=== PATIENT | female | born 1960 | race Asian ===

== ENCOUNTER 2017-07-06 18:15 | Emergency (ER) | payer OTHER ==
[~2017-07-06] VITALS: Ht 160 cm; Wt 56.8 kg
[2017-07-06] MEDS ORDERED: GLIP2.5T17 PO (19:30)
[2017-07-06] MEDS ORDERED: METO-558 PO (19:34)
[2017-07-06] MEDS ORDERED: BENZ2TAB10 PO (19:34)
[2017-07-06] MEDS ORDERED: PALI819S IM (19:34)
[2017-07-06] MEDS ORDERED: BENA10TA3 PO (19:34)
[2017-07-06] MEDS ORDERED: CLON1PAT12 PO (19:34)
[2017-07-06 19:43] LABS: BASOPHILS # (AUTO) 0.06 K/uL (0.00-0.20); BASOPHILS % (AUTO) 0.7 % (0.0-2.0); EOSINOPHILS # (AUTO) 0.54 K/uL (0.00-0.70); HEMOGLOBIN 10.6 g/dL (12.0-16.0); LYMPHOCYTES # (AUTO) 2.4 K/uL (1.0-4.8); LYMPHOCYTES % (AUTO) 26.5 % (22.0-44.0); MEAN CORPUSCULAR HEMOGLOBIN 31.5 pg (26.0-34.0); MEAN CORPUSCULAR HGB CONC 33.2 G/dL (31.0-37.0); MEAN CORPUSCULAR VOLUME 95 fL (80-100); MONOCYTES # (AUTO) 0.7 K/uL (0.1-1.0); MONOCYTES % (AUTO) 7.9 % (2.0-9.0); NEUTROPHILS # (AUTO) 5.3 K/uL (1.8-7.7); PLATELET COUNT (AUTO) 399 K/uL (150-450); RED BLOOD CELL COUNT(AUTO) 3.37 MIL/uL (4.00-5.20); RED CELL DISTRIBUTION WIDTH 12.5 % (11.5-14.5)
[2017-07-06 19:59] LABS: ANION GAP 10 mmol/L (8-16); CALCIUM, TOTAL 9.8 mg/dL (8.8-10.5); CARBON DIOXIDE 27 mmol/L (22-29); CHLORIDE 103 mmol/L (98-107); CREATININE 0.85 mg/dL (0.60-1.30); GLOMERULAR FILTR. RATE CALC > 60 mL/min (>60); GLUCOSE,RANDOM 98 mg/dL (70-110); POTASSIUM 3.8 mmol/L (3.5-5.1); SODIUM SERUM 140 mmol/L (136-145); UREA NITROGEN, BLOOD 13 mg/dL (7-18)
[2017-07-06 20:04] LABS: ALANINE AMINOTRANSFERASE 17 U/L (12-78); ALBUMIN 3.7 g/dL (3.4-5.0); ALKALINE PHOSPHATASE 57 U/L (46-116); ASPARTATE AMINOTRANSFERASE 14 U/L (15-37); BILIRUBIN,TOTAL 0.3 mg/dL (0.1-1.0); TOTAL PROTEIN, SERUM 7.4 g/dL (6.4-8.2)
[2017-07-06] MEDS ORDERED: HALOPERIDOL 5 MG TABLET PO ONE (20:30)
[2017-07-06 20:38] VITALS: BP 157/84
== END 2017-07-06 20:50 | disposition home or self-care (01) ==
LOC: EMS 18:17
DX: F20.9 Schizophrenia, unspecified (principal); M79.673 Pain in unspecified foot; I10 Essential (primary) hypertension; E11.9 Type 2 diabetes mellitus without complications; Z79.899 Other long term (current) drug therapy
CPT/HCPCS: 36415; 80053; 85025; 99284; G0480

== ENCOUNTER 2019-08-23 14:47 | Inpatient (IN) | payer OTHER ==
[~2019-08-23] VITALS: Ht 160 cm; Wt 60.1 kg
[~2019-08-23 14:47] MED LIST: BENA10TA77 PO; BENZ2TAB10 PO; CLON1PAT12 PO; GLIP2.5T17 PO; METO-558 PO; PALI819S IM
[2019-08-23] MEDS ORDERED: ACETAMINOPHEN 500 MG TABLET PO ONE (15:15)
[2019-08-23] MEDS ORDERED: KETOROLAC TROMETHAMINE 60 MG/2 ML VIAL IM ONE (15:15)
[2019-08-23 15:51] LABS: EOSINOPHILS % (AUTO) 8.3 % (1.0-6.0); HEMATOCRIT 36.3 % (36-46); HEMOGLOBIN 11.9 g/dL (12.0-16.0); LYMPHOCYTES # (AUTO) 2.5 K/uL (1.0-4.8); LYMPHOCYTES % (AUTO) 29.5 % (22.0-44.0); MEAN CORPUSCULAR HGB CONC 32.7 G/dL (31.0-37.0); MEAN CORPUSCULAR VOLUME 98 fL (80-100); MONOCYTES # (AUTO) 0.6 K/uL (0.1-1.0); MONOCYTES % (AUTO) 6.6 % (2.0-9.0); NEUTROPHILS # (AUTO) 4.7 K/uL (1.8-7.7); NEUTROPHILS % (AUTO) 54.6 % (40.0-70.0); PLATELET COUNT (AUTO) 311 K/uL (150-450); RED BLOOD CELL COUNT(AUTO) 3.71 MIL/uL (4.00-5.20); RED CELL DISTRIBUTION WIDTH 13.3 % (11.5-14.5)
[2019-08-23 16:03] LABS: CALCIUM, TOTAL 9.4 mg/dL (8.8-10.5); CREATININE 0.98 mg/dL (0.60-1.30); POTASSIUM 3.4 mmol/L (3.5-5.1)
[2019-08-23 16:08] LABS: ALBUMIN 4.2 g/dL (3.4-5.0); BILIRUBIN,TOTAL 0.2 mg/dL (0.1-1.0); TOTAL PROTEIN, SERUM 8.2 g/dL (6.4-8.2)
[2019-08-23] MEDS ORDERED: ASPIRIN 325 MG TABLET PO ONE (17:30)
[2019-08-23] MEDS ORDERED: POTASSIUM CHLORIDE 10% 40 MEQ/30 ML LIQUID UDCUP PO ONE (17:30)
[2019-08-23] MEDS ORDERED: ACETAMINOPHEN 325 MG TABLET PO PRN ×2 (17:45→21:00)
[2019-08-23] MEDS ORDERED: NITROGLYCERIN 2% (1 GM=INCH) PACKET TP ONE (17:45)
[2019-08-23] MEDS ORDERED: ONDANSETRON HCL 4 MG/2 ML VIAL IVP PRN ×2 (17:45→21:00)
[2019-08-23] MEDS ORDERED: 0.9% SODIUM CHLORIDE 10 ML SYRINGE IVP PRN ×2 (17:45→21:00)
[2019-08-23 20:00] LABS: GLUCOSE,POINT OF CARE 84 MG/DL (70-110)
[2019-08-23 20:28] VITALS: BP 137/72
[2019-08-23] MEDS: DOCUSATE SODIUM 100 MG CAPSULE PO SCH (21:00)
[2019-08-23] MEDS ORDERED: MAGNESIUM OXIDE 400 MG TABLET PO PRN (21:00)
[2019-08-23] MEDS ORDERED: DEXTROSE 50%-WATER 25 GM/50 ML SYRINGE IVP PRN (21:00)
[2019-08-23] MEDS ORDERED: MAGNESIUM SULFATE 2 GM/WATER 50 ML IV PRN (21:00)
[2019-08-23] MEDS ORDERED: MAGNESIUM SULFATE 4 GM/WATER 100 ML IV PRN (21:00)
[2019-08-23] MEDS ORDERED: POTASSIUM CHL 10 MEQ/WATER 50 ML IV PRN (21:00)
[2019-08-23] MEDS ORDERED: BENZTROPINE MESYLATE 2 MG TABLET PO SCH (21:00)
[2019-08-23] MEDS ORDERED: ZOLPIDEM TARTRATE 5 MG TABLET PO PRN (21:00)
[2019-08-23] MEDS ORDERED: POTASSIUM CHLORIDE 20 MEQ ER TABLET PO PRN (21:00)
[2019-08-23] MEDS: BENZTROPINE MESYLATE 2 MG TABLET PO SCH (22:00)
[2019-08-23] MEDS: HEPARIN SODIUM,PORCINE 5,000 UNITS/ML VIAL SQ SCH (23:52)
[2019-08-24] VITALS (8 sets, daily range): BP systolic 95–174; BP diastolic 47–76
[2019-08-24] MEDS ORDERED: PNEUMOCOCCAL VACCINE POLYVALENT 0.5 ML VIAL [PPSV23] IM ONE (03:45)
[2019-08-24] MEDS ORDERED: INFLUENZA VIRUS VACCINE QVS 2019-20 (3YR+)/PF 60 MCG/0.5 ML SYRINGE IM ONE (03:45)
[2019-08-24 05:43] LABS: APPEARANCE,URINE CLOUDY (CLEAR); BILIRUBIN,URINE NEGATIVE (NEGATIVE); GLUCOSE, URINE (UA) NEGATIVE (NEGATIVE); KETONES,URINE NEGATIVE (NEGATIVE); LEUKOCYTE ESTERASE ,URINE LARGE (NEGATIVE); NITRATE,URINE NEGATIVE (NEGATIVE); OCCULT BLOOD,URINE NEGATIVE (NEGATIVE); PH,URINE 5.5 (5.0-8.0); PROTEIN,URINE NEGATIVE (NEGATIVE); UROBILINOGEN,URINE 0.2 mg/dL (<=1.0)
[2019-08-24 05:48] LABS: AMPHET/METH SCREEN,URINE NEGATIVE (NEGATIVE); BARBITURATE SCREEN, URINE NEGATIVE (NEGATIVE); BENZODIAZEPINES SCREEN,URINE NEGATIVE (NEGATIVE); CANNABINOID SCREEN,URINE NEGATIVE (NEGATIVE); COCAINE SCREEN,URINE NEGATIVE (NEGATIVE); METHADONE SCREEN, URINE NEGATIVE (NEGATIVE); OPIATE SCREEN,URINE NEGATIVE (NEGATIVE); PHENCYCLIDINE SCREEN,URINE NEGATIVE (NEGATIVE)
[2019-08-24 05:55] LABS: BACTERIA,URINE Few /HPF (None Seen); RBC,URINE 0-2 /HPF (0-2); SQUAMOUS EPITHELIAL CELL,UR Moderate /LPF (None Seen)
[2019-08-24 06:20] LABS: BASOPHILS % (AUTO) 0.9 % (0.0-2.0); EOSINOPHILS % (AUTO) 9.5 % (1.0-6.0); HEMATOCRIT 32.6 % (36-46); HEMOGLOBIN 10.8 g/dL (12.0-16.0); LYMPHOCYTES # (AUTO) 2.1 K/uL (1.0-4.8); LYMPHOCYTES % (AUTO) 28.7 % (22.0-44.0); MEAN CORPUSCULAR HEMOGLOBIN 32.2 pg (26.0-34.0); MEAN CORPUSCULAR HGB CONC 33.2 G/dL (31.0-37.0); MEAN CORPUSCULAR VOLUME 97 fL (80-100); MONOCYTES # (AUTO) 0.5 K/uL (0.1-1.0); NEUTROPHILS # (AUTO) 3.9 K/uL (1.8-7.7); NEUTROPHILS % (AUTO) 53.9 % (40.0-70.0); PLATELET COUNT (AUTO) 273 K/uL (150-450); RED BLOOD CELL COUNT(AUTO) 3.36 MIL/uL (4.00-5.20)
[2019-08-24 06:22] LABS: HEMOGLOBIN A1C 5.7 % (4.5-6.2)
[2019-08-24 06:28] LABS: CALCIUM, TOTAL 8.8 mg/dL (8.8-10.5); CREATININE 1.18 mg/dL (0.60-1.30); MAGNESIUM 1.8 mg/dL (1.80-2.40); POTASSIUM 4.7 mmol/L (3.5-5.1)
[2019-08-24 07:49] LABS: GLUCOMETER DEV NAME(LOC) 5S.2A; GLUCOSE,POINT OF CARE 146 MG/DL (70-110)
[2019-08-24 07:50] LABS: GLUCOMETER DEV NAME(LOC) 5S.2A; GLUCOSE,POINT OF CARE 99 MG/DL (70-110)
[2019-08-24] MEDS: HEPARIN SODIUM,PORCINE 5,000 UNITS/ML VIAL SQ SCH ×4 (08:00→23:24)
[2019-08-24] MEDS: METOPROLOL SUCCINATE 50 MG ER TABLET PO SCH (09:00)
[2019-08-24] MEDS: DOCUSATE SODIUM 100 MG CAPSULE PO SCH ×2 (09:00→20:14)
[2019-08-24] MEDS: CloNIDine HCL 0.1 MG TABLET PO SCH ×2 (09:00→20:14)
[2019-08-24] MEDS: BENZTROPINE MESYLATE 2 MG TABLET PO SCH ×2 (09:51→21:27)
[2019-08-24] MEDS: PANTOPRAZOLE SODIUM 40 MG DR TABLET PO SCH (09:51)
[2019-08-24] MEDS ORDERED: GLIP5 PO (10:53)
[2019-08-24] MEDS ORDERED: CLON0.1T83 PO (10:53)
[2019-08-24] MEDS: BENAZEPRIL HCL 10 MG TABLET PO SCH (12:09)
[2019-08-24 13:04] LABS: GLUCOMETER DEV NAME(LOC) 5S.2A; GLUCOSE,POINT OF CARE 112 MG/DL (70-110)
[2019-08-24] MEDS: CefTRIAXone 1 GM/DEXTROSE 50 ML IV SCH (18:21)
[2019-08-24] MEDS: AZITHROMYCIN 500 MG/NS 250 ML IV SCH (19:09)
[2019-08-24] MEDS ORDERED: BENZTROPINE MESYLATE 1 MG TABLET PO SCH (21:00)
[2019-08-24] MEDS: INSULIN LISPRO 100 UNITS/ML SQ PRN (21:21)
[2019-08-25] VITALS (7 sets, daily range): BP systolic 100–162; BP diastolic 55–76
[2019-08-25 05:01] LABS: GLUCOMETER DEV NAME(LOC) 5N.2; GLUCOSE,POINT OF CARE 203 MG/DL (70-110)
[2019-08-25 06:44] LABS: GLUCOMETER DEV NAME(LOC) 5S.2A; GLUCOSE,POINT OF CARE 119 MG/DL (70-110)
[2019-08-25] MEDS: CloNIDine HCL 0.1 MG TABLET PO SCH ×2 (08:17→21:00)
[2019-08-25] MEDS: DOCUSATE SODIUM 100 MG CAPSULE PO SCH ×2 (08:20→21:02)
[2019-08-25] MEDS: BENZTROPINE MESYLATE 2 MG TABLET PO SCH ×2 (08:21→21:02)
[2019-08-25] MEDS: PANTOPRAZOLE SODIUM 40 MG DR TABLET PO SCH (08:21)
[2019-08-25] MEDS: HEPARIN SODIUM,PORCINE 5,000 UNITS/ML VIAL SQ SCH ×2 (08:21→15:38)
[2019-08-25] MEDS: BENAZEPRIL HCL 10 MG TABLET PO SCH ×3 (09:00→14:49)
[2019-08-25] MEDS: METOPROLOL SUCCINATE 50 MG ER TABLET PO SCH (09:00)
[2019-08-25] MEDS: CefTRIAXone 1 GM/DEXTROSE 50 ML IV SCH (17:13)
[2019-08-25 17:27] LABS: GLUCOMETER DEV NAME(LOC) 5N.2; GLUCOSE,POINT OF CARE 110 MG/DL (70-110)
[2019-08-25 17:27] LABS: GLUCOMETER DEV NAME(LOC) 5N.2; GLUCOSE,POINT OF CARE 131 MG/DL (70-110)
[2019-08-25 17:27] LABS: GLUCOMETER DEV NAME(LOC) 5N.2; GLUCOSE,POINT OF CARE 110 MG/DL (70-110)
[2019-08-25] MEDS: AZITHROMYCIN 500 MG/NS 250 ML IV SCH (18:14)
[2019-08-25] MEDS: INSULIN LISPRO 100 UNITS/ML SQ PRN (21:09)
[2019-08-26 05:11] VITALS: BP 118/59
[2019-08-26 06:45] LABS: GLUCOMETER DEV NAME(LOC) 5N.2; GLUCOSE,POINT OF CARE 107 MG/DL (70-110)
[2019-08-26 06:50] LABS: GLUCOMETER DEV NAME(LOC) 5S.2A; GLUCOSE,POINT OF CARE 186 MG/DL (70-110)
[2019-08-26 08:46] VITALS: BP 129/65
[2019-08-26] MEDS: BENZTROPINE MESYLATE 2 MG TABLET PO SCH ×2 (08:48→20:02)
[2019-08-26] MEDS: DOCUSATE SODIUM 100 MG CAPSULE PO SCH ×2 (08:48→20:03)
[2019-08-26] MEDS: HEPARIN SODIUM,PORCINE 5,000 UNITS/ML VIAL SQ SCH ×5 (08:49→17:36)
[2019-08-26] MEDS: BENAZEPRIL HCL 10 MG TABLET PO SCH (08:49)
[2019-08-26] MEDS: PANTOPRAZOLE SODIUM 40 MG DR TABLET PO SCH (08:49)
[2019-08-26] MEDS: METOPROLOL SUCCINATE 50 MG ER TABLET PO SCH (08:49)
[2019-08-26] MEDS: CloNIDine HCL 0.1 MG TABLET PO SCH ×2 (08:58→20:03)
[2019-08-26 12:00] VITALS: BP 116/65
[2019-08-26 15:35] LABS: GLUCOMETER DEV NAME(LOC) 5N.2; GLUCOSE,POINT OF CARE 117 MG/DL (70-110)
[2019-08-26 16:35] VITALS: BP 120/69
[2019-08-26] MEDS: CefTRIAXone 1 GM/DEXTROSE 50 ML IV SCH (17:29)
[2019-08-26] MEDS: AZITHROMYCIN 500 MG/NS 250 ML IV SCH (18:17)
[2019-08-26 19:59] VITALS: BP 95/55
[2019-08-26] MEDS: INSULIN LISPRO 100 UNITS/ML SQ PRN (20:08)
[2019-08-26 22:19] LABS: GLUCOMETER DEV NAME(LOC) 5N.2; GLUCOSE,POINT OF CARE 219 MG/DL (70-110)
[2019-08-26 22:19] LABS: GLUCOMETER DEV NAME(LOC) 5N.2; GLUCOSE,POINT OF CARE 123 MG/DL (70-110)
[2019-08-26 23:49] VITALS: BP 102/48
[2019-08-27 04:10] VITALS: BP 111/63
[2019-08-27 06:43] LABS: GLUCOMETER DEV NAME(LOC) 5N.2; GLUCOSE,POINT OF CARE 99 MG/DL (70-110)
[2019-08-27 07:03] LABS: EOSINOPHILS % (AUTO) 12.9 % (1.0-6.0); HEMATOCRIT 33.9 % (36-46); HEMOGLOBIN 11.5 g/dL (12.0-16.0); LYMPHOCYTES # (AUTO) 2.5 K/uL (1.0-4.8); LYMPHOCYTES % (AUTO) 33.4 % (22.0-44.0); MEAN CORPUSCULAR HEMOGLOBIN 32.6 pg (26.0-34.0); MEAN CORPUSCULAR HGB CONC 33.9 G/dL (31.0-37.0); MEAN CORPUSCULAR VOLUME 96 fL (80-100); MONOCYTES # (AUTO) 0.4 K/uL (0.1-1.0); MONOCYTES % (AUTO) 5.8 % (2.0-9.0); NEUTROPHILS # (AUTO) 3.6 K/uL (1.8-7.7); NEUTROPHILS % (AUTO) 46.9 % (40.0-70.0); PLATELET COUNT (AUTO) 286 K/uL (150-450); RED BLOOD CELL COUNT(AUTO) 3.53 MIL/uL (4.00-5.20); RED CELL DISTRIBUTION WIDTH 13.1 % (11.5-14.5)
[2019-08-27 07:06] LABS: ANION GAP 8 mmol/L (8-16); CALCIUM, TOTAL 8.7 mg/dL (8.8-10.5); CARBON DIOXIDE 26 mmol/L (22-29); CHLORIDE 104 mmol/L (98-107); CREATININE 0.82 mg/dL (0.60-1.30); GLOMERULAR FILTR. RATE CALC > 60 mL/min (>60); GLUCOSE,RANDOM 102 mg/dL (70-110); POTASSIUM 4.2 mmol/L (3.5-5.1); SODIUM SERUM 138 mmol/L (136-145); UREA NITROGEN, BLOOD 26 mg/dL (7-18)
[2019-08-27 07:54] VITALS: BP 124/69
[2019-08-27] MEDS: CloNIDine HCL 0.1 MG TABLET PO SCH (08:34)
[2019-08-27] MEDS: BENZTROPINE MESYLATE 2 MG TABLET PO SCH (08:34)
[2019-08-27] MEDS: BENAZEPRIL HCL 10 MG TABLET PO SCH (08:34)
[2019-08-27] MEDS: DOCUSATE SODIUM 100 MG CAPSULE PO SCH (08:34)
[2019-08-27] MEDS: PANTOPRAZOLE SODIUM 40 MG DR TABLET PO SCH (08:34)
[2019-08-27] MEDS: METOPROLOL SUCCINATE 50 MG ER TABLET PO SCH (08:34)
[2019-08-27] MEDS: HEPARIN SODIUM,PORCINE 5,000 UNITS/ML VIAL SQ SCH ×3 (08:35→15:32)
[2019-08-27 11:31] VITALS: BP 97/43
[2019-08-27] MEDS ORDERED: CIP250 PO (13:15)
[2019-08-27] MEDS ORDERED: SODIUM CHLORIDE 0.9% 250 ML IV ONE (13:51)
[2019-08-27] MEDS: AZITHROMYCIN 500 MG/NS 250 ML IV SCH (14:41)
[2019-08-27 15:44] VITALS: BP 100/53
[2019-08-27] MEDS: CefTRIAXone 1 GM/DEXTROSE 50 ML IV SCH (15:56)
[2019-08-28 11:47] LABS: GLUCOMETER DEV NAME(LOC) 5S.2A; GLUCOSE,POINT OF CARE 126 MG/DL (70-110)
[2019-09-19] MEDS ORDERED: [UNRECOGNIZED DRUG - OTHER] IM SCH (09:00)
== END 2019-08-27 18:20 | disposition home or self-care (01) | DRG 203 ==
LOC: EMS 14:47 → 5S 18:36
PROVIDERS: ADMIT Internal Medicine; ATTEND Internal Medicine
DX: R07.89 Other chest pain (principal); J18.9 Pneumonia, unspecified organism; F20.0 Paranoid schizophrenia; I10 Essential (primary) hypertension; E11.9 Type 2 diabetes mellitus without complications; E87.6 Hypokalemia
CPT/HCPCS: 71250; 83036; 83735; 87086; 93005; 93306; 96372; G0378; G0480; J0456; J0696; J1644; J1885; J2405; J7050

== ENCOUNTER 2019-12-10 10:26 | Emergency (ER) | payer OTHER ==
[~2019-12-10] VITALS: Ht 154.9 cm; Wt 56.8 kg
[~2019-12-10 10:26] MED LIST changes: +CIPR250T6 PO; +CLON0.1T83 PO; -CLON1PAT12 PO; -GLIP2.5T17 PO; +GLIP5 PO
[2019-12-10] MEDS ORDERED: PRAZ1CAP5 PO (11:01)
[2019-12-10] MEDS ORDERED: FLUP10 PO (11:01)
[2019-12-10] MEDS ORDERED: ARIP1SOL PO (11:01)
[2019-12-10] MEDS ORDERED: PALI546S IM (11:01)
[2019-12-10] MEDS ORDERED: ACETAMINOPHEN 500 MG TABLET PO ONE (13:45)
[2019-12-10] MEDS ORDERED: ARIP10TA8 PO (14:08)
[2019-12-10 14:28] LABS: BASOPHILS % (AUTO) 1.2 % (0.0-2.0); EOSINOPHILS % (AUTO) 3.9 % (1.0-6.0); HEMOGLOBIN 12.6 g/dL (12.0-16.0); LYMPHOCYTES # (AUTO) 1.9 K/uL (1.0-4.8); LYMPHOCYTES % (AUTO) 23.6 % (22.0-44.0); MEAN CORPUSCULAR HEMOGLOBIN 31.5 pg (26.0-34.0); MEAN CORPUSCULAR HGB CONC 32.2 G/dL (31.0-37.0); MEAN CORPUSCULAR VOLUME 98 fL (80-100); MONOCYTES # (AUTO) 0.5 K/uL (0.1-1.0); MONOCYTES % (AUTO) 6.2 % (2.0-9.0); NEUTROPHILS # (AUTO) 5.1 K/uL (1.8-7.7); NEUTROPHILS % (AUTO) 65.1 % (40.0-70.0); PLATELET COUNT (AUTO) 317 K/uL (150-450); RED BLOOD CELL COUNT(AUTO) 3.98 MIL/uL (4.00-5.20); RED CELL DISTRIBUTION WIDTH 12.3 % (11.5-14.5)
[2019-12-10 14:45] LABS: CALCIUM, TOTAL 10.9 mg/dL (8.8-10.5); CREATININE 1.01 mg/dL (0.60-1.30); POTASSIUM 3.6 mmol/L (3.5-5.1)
[2019-12-10 14:48] LABS: ALBUMIN 4.3 g/dL (3.4-5.0); BILIRUBIN,TOTAL 0.5 mg/dL (0.1-1.0); TOTAL PROTEIN, SERUM 8.3 g/dL (6.4-8.2)
[2019-12-10 14:52] LABS: GLUCOSE,POINT OF CARE 130 MG/DL (70-110)
[2019-12-10 14:52] LABS: GLUCOSE,POINT OF CARE 62 MG/DL (70-110)
[2019-12-10 16:32] LABS: PROTHROMBIN TIME 10.6 SEC (9.4-11.6)
[2019-12-10 17:49] LABS: APPEARANCE,URINE CLEAR (CLEAR); BILIRUBIN,URINE NEGATIVE (NEGATIVE); GLUCOSE, URINE (UA) NEGATIVE (NEGATIVE); KETONES,URINE NEGATIVE (NEGATIVE); LEUKOCYTE ESTERASE ,URINE NEGATIVE (NEGATIVE); NITRATE,URINE POSITIVE (NEGATIVE); OCCULT BLOOD,URINE NEGATIVE (NEGATIVE); PROTEIN,URINE NEGATIVE (NEGATIVE); UROBILINOGEN,URINE 0.2 mg/dL (<=1.0)
[2019-12-10 18:15] LABS: INFLUENZA TYPE A NEGATIVE FOR TYPE A (NEGATIVE); INFLUENZA TYPE B NEGATIVE FOR TYPE B (NEGATIVE)
[2019-12-10 18:52] VITALS: BP 120/65
[2019-12-10 18:55] LABS: BACTERIA,URINE None Seen /HPF (None Seen); RBC,URINE None Seen /HPF (0-2); SQUAMOUS EPITHELIAL CELL,UR Rare /LPF (None Seen); WBC,URINE None Seen /HPF (0-5)
[2019-12-10 19:09] LABS: GLUCOSE,POINT OF CARE 192 MG/DL (70-110)
[2019-12-10] MEDS ORDERED: CefTRIAXone 1 GM/DEXTROSE 50 ML IV ONE (19:15)
[2019-12-10] MEDS ORDERED: AZITHROMYCIN 500 MG TABLET PO ONE (19:15)
== END 2019-12-10 20:57 | disposition home or self-care (01) ==
LOC: EMS 10:27
DX: J18.9 Pneumonia, unspecified organism (principal); R82.71 Bacteriuria; M79.10 Myalgia, unspecified site; E11.9 Type 2 diabetes mellitus without complications; I10 Essential (primary) hypertension; F20.9 Schizophrenia, unspecified; Z20.828 Contact with and (suspected) exposure to other viral communicable diseases
CPT/HCPCS: 36415; 71045; 80053; 81001; 82550; 82962; 83605; 83690; 83880; 84484; 85025; 85610; 85730; 87635; 87804; 93005; 96365; 99285; G0480; J0696

== ENCOUNTER 2020-10-17 15:47 | Emergency (ER) | payer OTHER ==
[~2020-10-17] VITALS: Ht 157.5 cm; Wt 75.0 kg
[~2020-10-17 15:47] MED LIST changes: +ARIP10TA8 PO; +CLON0.1T2 PO; -CLON0.1T83 PO; +FLUP10TA13 PO; +PRAZ1CAP5 PO
[2020-10-17] MEDS ORDERED: BENZTROPINE MESYLATE 2 MG TABLET PO ONE (16:45)
[2020-10-17 17:34] LABS: COVID AG,FIA SOURCE NASOPHARYNGEAL
[2020-10-17 17:38] LABS: BASOPHILS % (AUTO) 0.6 % (0.0-2.0); EOSINOPHILS % (AUTO) 1.8 % (1.0-6.0); HEMATOCRIT 35.9 % (36-46); HEMOGLOBIN 11.7 g/dL (12.0-16.0); LYMPHOCYTES # (AUTO) 1.6 K/uL (1.0-4.8); LYMPHOCYTES % (AUTO) 19.2 % (22.0-44.0); MEAN CORPUSCULAR HEMOGLOBIN 31.2 pg (26.0-34.0); MEAN CORPUSCULAR HGB CONC 32.7 G/dL (31.0-37.0); MEAN CORPUSCULAR VOLUME 96 fL (80-100); MONOCYTES # (AUTO) 0.6 K/uL (0.1-1.0); MONOCYTES % (AUTO) 6.5 % (2.0-9.0); NEUTROPHILS # (AUTO) 6.2 K/uL (1.8-7.7); NEUTROPHILS % (AUTO) 71.9 % (40.0-70.0); PLATELET COUNT (AUTO) 325 K/uL (150-450); RED BLOOD CELL COUNT(AUTO) 3.76 MIL/uL (4.00-5.20); RED CELL DISTRIBUTION WIDTH 12.6 % (11.5-14.5)
[2020-10-17 17:46] LABS: APPEARANCE,URINE CLEAR (CLEAR); BILIRUBIN,URINE NEGATIVE (NEGATIVE); GLUCOSE, URINE (UA) NEGATIVE (NEGATIVE); KETONES,URINE NEGATIVE (NEGATIVE); LEUKOCYTE ESTERASE ,URINE SMALL (NEGATIVE); NITRATE,URINE NEGATIVE (NEGATIVE); OCCULT BLOOD,URINE NEGATIVE (NEGATIVE); PH,URINE 6.5 (5.0-8.0); PROTEIN,URINE POS 1+ (NEGATIVE); UROBILINOGEN,URINE 0.2 mg/dL (<=1.0)
[2020-10-17 17:48] LABS: ANION GAP 11 mmol/L (8-16); CALCIUM, TOTAL 9.1 mg/dL (8.8-10.5); CARBON DIOXIDE 25 mmol/L (22-29); CHLORIDE 103 mmol/L (98-107); GLOMERULAR FILTR. RATE CALC 57 mL/min (>60); GLUCOSE,RANDOM 166 mg/dL (70-110); POTASSIUM 3.9 mmol/L (3.5-5.1); SODIUM SERUM 139 mmol/L (136-145); UREA NITROGEN, BLOOD 17 mg/dL (7-18)
[2020-10-17 17:51] LABS: AMPHET/METH SCREEN,URINE NEGATIVE (NEGATIVE); BARBITURATE SCREEN, URINE NEGATIVE (NEGATIVE); BENZODIAZEPINES SCREEN,URINE NEGATIVE (NEGATIVE); CANNABINOID SCREEN,URINE NEGATIVE (NEGATIVE); COCAINE SCREEN,URINE NEGATIVE (NEGATIVE); METHADONE SCREEN, URINE NEGATIVE (NEGATIVE); OPIATE SCREEN,URINE NEGATIVE (NEGATIVE)
[2020-10-17 17:54] LABS: ALANINE AMINOTRANSFERASE 20 U/L (12-78); ALBUMIN 3.7 g/dL (3.4-5.0); ALKALINE PHOSPHATASE 71 U/L (46-116); ASPARTATE AMINOTRANSFERASE 12 U/L (15-37); BILIRUBIN,TOTAL 0.4 mg/dL (0.1-1.0); TOTAL PROTEIN, SERUM 7.8 g/dL (6.4-8.2)
[2020-10-17 17:56] LABS: PHENCYCLIDINE SCREEN,URINE NEGATIVE (NEGATIVE)
[2020-10-17 18:00] LABS: BACTERIA,URINE None Seen /HPF (None Seen); RBC,URINE None Seen /HPF (0-2); SQUAMOUS EPITHELIAL CELL,UR Few /LPF (None Seen)
[2020-10-17 21:25] VITALS: BP 138/71
== END 2020-10-17 21:28 | disposition home or self-care (01) ==
LOC: EMS 15:47
DX: F20.9 Schizophrenia, unspecified (principal); E11.9 Type 2 diabetes mellitus without complications; I10 Essential (primary) hypertension; Z20.822 Contact with and (suspected) exposure to COVID-19
CPT/HCPCS: 36415; 80053; 80307; 81001; 85025; 87086; 87426; 99283; G0480

== ENCOUNTER 2024-08-27 16:23 | Emergency (ER) | payer OTHER ==
[~2024-08-27] VITALS: Ht 162.6 cm; Wt 72.0 kg
[~2024-08-27 16:23] MED LIST changes: +ARIP10TA38 PO; -ARIP10TA8 PO; +BENA-16 PO; -BENA10TA77 PO; -BENZ2TAB10 PO; +BENZ2TAB84 PO; -FLUP10TA13 PO; +FLUP10TA28 PO; -GLIP5 PO; +GLIP5TAB16 PO; +METO-325 PO; -METO-558 PO
[2024-08-27 16:48] VITALS: TEMP 97.4
[2024-08-27 17:31] LABS: COVID AG,FIA SOURCE NASAL SWAB
[2024-08-27 17:34] LABS: BASOPHILS % (AUTO) 0.7 % (0.0-2.0); EOSINOPHILS % (AUTO) 6.6 % (1.0-6.0); HEMATOCRIT 37.3 % (36-46); HEMOGLOBIN 11.9 g/dL (12.0-16.0); LYMPHOCYTES # (AUTO) 2.6 K/uL (1.0-4.8); LYMPHOCYTES % (AUTO) 30.6 % (22.0-44.0); MEAN CORPUSCULAR HEMOGLOBIN 30.1 pg (26.0-34.0); MEAN CORPUSCULAR HGB CONC 32.1 G/dL (31.0-37.0); MEAN CORPUSCULAR VOLUME 94 fL (80-100); MONOCYTES # (AUTO) 0.5 K/uL (0.1-1.0); MONOCYTES % (AUTO) 6.2 % (2.0-9.0); NEUTROPHILS # (AUTO) 4.8 K/uL (1.8-7.7); NEUTROPHILS % (AUTO) 55.9 % (40.0-70.0); PLATELET COUNT (AUTO) 313 K/uL (150-450); RED BLOOD CELL COUNT(AUTO) 3.97 MIL/uL (4.00-5.20); WHITE BLOOD COUNT (AUTO) 8.5 K/uL (4.5-11.0)
[2024-08-27 17:44] LABS: ANION GAP 6 mmol/L (8-16); CALCIUM, TOTAL 9.2 mg/dL (8.8-10.5); CARBON DIOXIDE 31 mmol/L (22-29); CHLORIDE 105 mmol/L (98-107); CREATININE 0.77 mg/dL (0.60-1.30); GLOMERULAR FILTR. RATE CALC > 60 mL/min (>60); GLUCOSE,RANDOM 129 mg/dL (70-110); POTASSIUM 3.9 mmol/L (3.5-5.1); SODIUM SERUM 142 mmol/L (136-145); UREA NITROGEN, BLOOD 28 mg/dL (7-18)
[2024-08-27 17:59] LABS: ALCOHOL, BLOOD (SERUM) < 3 mg/dL (0-10)
[2024-08-27 18:00] LABS: SARS-COV2 (COVID) ANTIGEN,FIA Negative (Negative)
[2024-08-27] MEDS ORDERED: SITA1TAB6 PO (19:49)
[2024-08-27] MEDS ORDERED: DIVA-111 PO (19:49)
[2024-08-27] MEDS ORDERED: LEVO330T7 PO (19:49)
[2024-08-27] MEDS ORDERED: QUET300T91 PO (19:49)
[2024-08-27] MEDS ORDERED: FAMO20 PO (19:49)
[2024-08-27] MEDS ORDERED: FOLI-130 PO (19:49)
[2024-08-27] MEDS ORDERED: LACT10SO9 PO (19:49)
[2024-08-27] MEDS ORDERED: FENO48TA10 PO (19:49)
[2024-08-27] MEDS ORDERED: DULO-113 PO (19:49)
[2024-08-27] MEDS ORDERED: RIFAX550 PO (19:49)
[2024-08-27] MEDS ORDERED: LISI5TAB21 PO (19:49)
[2024-08-27] MEDS: LORazepam 2 MG/ML VIAL IM ONE (20:59)
[2024-08-27] MEDS: HALOPERIDOL LACTATE 5 MG/ML VIAL IM ONE (21:00)
[2024-08-27 23:18] VITALS: BP 119/66; PULSE 66; RESP 16; O2SAT 96
[2024-08-28 00:51] LABS: GLUCOMETER DEV NAME(LOC) ER.7; GLUCOSE,POINT OF CARE 138 MG/DL (70-110)
== END 2024-08-28 00:49 | disposition home or self-care (01) ==
LOC: EMS 16:25
DX: F03.92 Unspecified dementia, unspecified severity, with psychotic disturbance (principal); R41.89 Other symptoms and signs involving cognitive functions and awareness; E11.9 Type 2 diabetes mellitus without complications; E78.5 Hyperlipidemia, unspecified; F20.0 Paranoid schizophrenia; F31.9 Bipolar disorder, unspecified; I10 Essential (primary) hypertension; F41.9 Anxiety disorder, unspecified; K21.9 Gastro-esophageal reflux disease without esophagitis; Z79.899 Other long term (current) drug therapy; Z91.148 Patient's other noncompliance with medication regimen for other reason; Z20.822 Contact with and (suspected) exposure to COVID-19
CPT/HCPCS: 99284; 87426; 80048; 82962; 85025; 36415; G0480; J2060

== ENCOUNTER → 2024-09-12 | Emergency (ER) | payer OTHER ==
[~2024-09-12] VITALS: Ht 152.4 cm; Wt 60.0 kg
[~2024-09-12] MED LIST changes: -ARIP10TA38 PO; -BENA-16 PO; -BENZ2TAB84 PO; -CIPR250T6 PO; -CLON0.1T2 PO; +DIVA-111 PO; +DULO-113 PO; +FAMO20 PO; +FENO48TA10 PO; -FLUP10TA28 PO; +FOLI-130 PO; -GLIP5TAB16 PO; +LACT10SO9 PO; +LEVO330T7 PO; +LISI5TAB21 PO; -METO-325 PO; -PALI819S IM; +QUET300T91 PO; +RIFAX550 PO; +SITA1TAB6 PO
[2024-09-12 14:33] VITALS: BP 170/88; PULSE 69; RESP 18; TEMP 97.5; O2SAT 98
[2024-09-12 14:46] LABS: EOSINOPHILS % (AUTO) 7.1 % (1.0-6.0); HEMATOCRIT 37.5 % (36-46); HEMOGLOBIN 12.2 g/dL (12.0-16.0); LYMPHOCYTES # (AUTO) 2.6 K/uL (1.0-4.8); LYMPHOCYTES % (AUTO) 32.8 % (22.0-44.0); MEAN CORPUSCULAR HEMOGLOBIN 30.7 pg (26.0-34.0); MEAN CORPUSCULAR HGB CONC 32.6 G/dL (31.0-37.0); MEAN CORPUSCULAR VOLUME 94 fL (80-100); MONOCYTES # (AUTO) 0.5 K/uL (0.1-1.0); MONOCYTES % (AUTO) 6.7 % (2.0-9.0); NEUTROPHILS # (AUTO) 4.2 K/uL (1.8-7.7); NEUTROPHILS % (AUTO) 52.4 % (40.0-70.0); PLATELET COUNT (AUTO) 300 K/uL (150-450); RED BLOOD CELL COUNT(AUTO) 3.98 MIL/uL (4.00-5.20); RED CELL DISTRIBUTION WIDTH 12.1 % (11.5-14.5)
[2024-09-12 14:52] LABS: ANION GAP 9 mmol/L (8-16); CALCIUM, TOTAL 9.2 mg/dL (8.8-10.5); CARBON DIOXIDE 27 mmol/L (22-29); CHLORIDE 104 mmol/L (98-107); CREATININE 0.93 mg/dL (0.60-1.30); GLOMERULAR FILTR. RATE CALC > 60 mL/min (>60); GLUCOSE,RANDOM 139 mg/dL (70-110); POTASSIUM 3.8 mmol/L (3.5-5.1); SODIUM SERUM 140 mmol/L (136-145); UREA NITROGEN, BLOOD 30 mg/dL (7-18)
[2024-09-12 15:04] LABS: ALCOHOL, BLOOD (SERUM) < 3 mg/dL (0-10)
== END ==
LOC: EMS 14:16
DX: F20.9 Schizophrenia, unspecified (principal); E11.9 Type 2 diabetes mellitus without complications; I10 Essential (primary) hypertension; K21.9 Gastro-esophageal reflux disease without esophagitis; F41.9 Anxiety disorder, unspecified; Z79.899 Other long term (current) drug therapy
CPT/HCPCS: 99284; 80048; 85025; 36415; G0480

== ENCOUNTER 2025-05-25 12:58 | Emergency (ER) | payer OTHER ==
[~2025-05-25] VITALS: Ht 167.6 cm; Wt 61.3 kg
[~2025-05-25 12:58] MED LIST changes: -DULO-113 PO; +DULO60CA73 PO
[2025-05-25] MEDS ORDERED: SENN-376 PO (15:04)
[2025-05-25] MEDS ORDERED: DIVA-112 PO (15:04)
[2025-05-25] MEDS ORDERED: SODI133E17 PR (15:04)
[2025-05-25] MEDS ORDERED: ATOR20TA PO (15:04)
[2025-05-25] MEDS ORDERED: DIVA-111 PO (15:04)
[2025-05-25] MEDS ORDERED: OLAN10TA74 PO (15:04)
[2025-05-25] MEDS ORDERED: TRAZ-257 PO (15:04)
[2025-05-25] MEDS ORDERED: ARIP400S3 IM (15:04)
[2025-05-25] MEDS ORDERED: POLY17PO47 PO (15:04)
[2025-05-25] MEDS ORDERED: BISA10SU11 PR (15:04)
[2025-05-25] MEDS ORDERED: METF-1211 PO (15:04)
[2025-05-25] MEDS ORDERED: MAGN-169 PO (15:04)
[2025-05-25] MEDS ORDERED: MULT-264 PO (15:04)
[2025-05-25] MEDS ORDERED: LORA1TAB25 PO (15:04)
[2025-05-25 15:15] VITALS: BP 134/68; PULSE 68; RESP 18; TEMP 98.4; O2SAT 100
== END 2025-05-25 16:12 ==
LOC: EMS 12:58
DX: S09.90XA Unspecified injury of head, initial encounter (principal); F41.9 Anxiety disorder, unspecified; E11.9 Type 2 diabetes mellitus without complications; I10 Essential (primary) hypertension; F20.9 Schizophrenia, unspecified; Z79.899 Other long term (current) drug therapy; W01.0XXA Fall on same level from slipping, tripping and stumbling without subsequent striking against object, initial encounter; Y93.89 Activity, other specified; Y92.89 Other specified places as the place of occurrence of the external cause; Y99.8 Other external cause status
CPT/HCPCS: 70450; 72125; 99284